=== PATIENT | female | born 1975 | race Two or more races ===

== ENCOUNTER 2020-11-28 07:43 | Emergency (ER) | payer MEDICAID, OTHER ==
[~2020-11-28] VITALS: Ht 157.5 cm; Wt 98.9 kg
[2020-11-28 07:55] VITALS: BP 134/74
[2020-11-28] MEDS ORDERED: traMADol HCL 50 MG TAB PO ONE (08:30)
== END 2020-11-28 09:13 | disposition home or self-care (01) ==
LOC: ER 07:43
DX: S20.211A Contusion of right front wall of thorax, initial encounter (principal); E11.9 Type 2 diabetes mellitus without complications; I10 Essential (primary) hypertension; Z88.5 Allergy status to narcotic agent; Z88.8 Allergy status to other drugs, medicaments and biological substances; Z90.49 Acquired absence of other specified parts of digestive tract; Z90.710 Acquired absence of both cervix and uterus; Z98.890 Other specified postprocedural states; W01.198A Fall on same level from slipping, tripping and stumbling with subsequent striking against other object, initial encounter; Y93.89 Activity, other specified; Y92.89 Other specified places as the place of occurrence of the external cause; Y99.8 Other external cause status
CPT/HCPCS: 71046; 73030; 93005